=== PATIENT | male | born 1965 | race Caucasian/White ===

== ENCOUNTER → 2016-12-31 | Outpatient (CLI) | payer OTHER ==
--- NOTE | 2016-12-31 09:10 | CT ---
EXAMINATION TYPE: CT sinus wo con DATE OF EXAM: 12/31/2016 COMPARISON: NONE HISTORY: Chronic sinusitis CT DLP: 642.50 mGycm. Automated Exposure Control for Dose Reduction was Utilized. TECHNIQUE: CT scan of the sinuses is performed without contrast, axial images are obtained, coronal r eformatted images are also reviewed. FINDINGS: Visualized intracranial structures are normal. The orbits appear normal. There is minimal mucoperiosteal thickening involving the inferior aspect of the left maxillary sinus. There appears to been previous surgery on the left maxillary sinus to widen the ostium. There is als o been a partial ethmoidectomy on the left. The ostia on the right is patent. IMPRESSION: 1. POSTSURGICAL CHANGE. 2. MINIMAL MUCOPERIOSTEAL THICKENING, LEFT MAXILLARY SINUS..
== END | disposition home or self-care (01) ==
LOC: RADCTMAIN 08:44
PROVIDERS: ATTEND Otolaryngology
DX: J32.0 Chronic maxillary sinusitis (principal); J34.89 Other specified disorders of nose and nasal sinuses
CPT/HCPCS: 70486

== ENCOUNTER → 2017-02-17 | Outpatient (CLI) | payer OTHER ==
[2017-02-17 11:16] LABS: Blood Urea Nitrogen 22 mg/dL (9-20); Non-African American GFR(MDRD) 58 (>60 ml/min/1.73 sqM)
--- NOTE | 2017-02-17 14:15 | MR ---
EXAMINATION TYPE: MR brain wo/w cspine wo DATE OF EXAM: 02/17/2017 COMPARISON: CT cervical spine dated 12/07/2010 HISTORY: Headaches, neck pain TECHNIQUE: Multiplanar, multisequence images of the brain and brainstem is performed without and with IV contras t, utilizing 20 mL intravenous MultiHance . FINDINGS: Brain: Diffusion weighted images demonstrate no evidence of a recent infarct or other diffusion abnor mality. 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 There is no extra-axial fluid collection. Mild periventricular hyperintensity is seen on T2/FLAIR images without abnormal enhancement most significa nt in the occipital lobes near the atria of the lateral ventricles. The ventricular system and cister nal spaces are normal in size and appearance. The brain volume is age appropriate. Midline structures demonstrate normal morphology. The craniocervical junction appears within normal limits. Post contrast images demonstrate no abnormal enhancement. Vertebral arteries are codominant. No evidence of vascular stenosis or occlusion. The dural venous sinuses appear patent. The visualize d sinuses are clear and the globes are intact. Cervical spine: C2-C3: No significant disc disease, neural foraminal narrowing, or spinal canal stenosis. C3-C4: Disc osteophyte complex, uncovertebral hypertrophy, and facet arthropathy creating mild bilate ral neural foraminal narrowing. There is narrowing of the spinal canal without significant stenosis a s there is preservation of the ventral subarachnoid CSF. C4-C5: There is a left eccentric disc osteophyte complex in combination with facet arthropathy creati ng moderate left neural foraminal narrowing and mild right neural foraminal narrowing. This nearly ab uts the ventral thecal sac on the left creating mild spinal canal stenosis. C5-C6: Small left paracentral disc protrusion superimposed on a broad-based disc bulge in addition to uncovertebral hypertrophy and facet arthropathy creates moderate left neural foraminal narrowing and mild spinal canal stenosis. The disc herniation effaces the ventral subarachnoid space and has mass effect upon the cervical cord without abnormal signal of the cervical cord to suggest myelomalacia or cord edema. C6-C7: There is a disc osteophyte complex without focality to suggest herniation effacing the ventral subarachnoid space and creating mild spinal canal stenosis. Additionally uncovertebral hypertrophy a nd facet arthropathy contribute to moderate bilateral neural foraminal narrowing. C7-T1: No significant disc disease, neuroforaminal narrowing or spinal canal stenosis. IMPRESSION: 1. Mild nonspecific periventricular white matter without abnormal enhancement, most commonly on the b asis of chronic microangiopathy. 2. Small left paracentral disc herniation at C5-C6 that in combination with uncovertebral hypertrophy and facet arthropathy creates moderate left neural foraminal narrowing and mild spinal canal stenosi s. 3. Multilevel degenerative disc disease crating mild spinal canal stenosis at C4-C5 and C6-C7.
== END | disposition home or self-care (01) ==
LOC: RADMRIMAIN 07:01
PROVIDERS: ATTEND Psychiatry & Neurology Neurology
DX: M48.02 Spinal stenosis, cervical region (principal); M99.71 Connective tissue and disc stenosis of intervertebral foramina of cervical region; M50.222 Other cervical disc displacement at C5-C6 level; M50.321 Other cervical disc degeneration at C4-C5 level; M12.88 Other specific arthropathies, not elsewhere classified, other specified site; I73.9 Peripheral vascular disease, unspecified; R51 Headache
CPT/HCPCS: 82565; 84520; 70553; 72141; 36415; A9577

== ENCOUNTER → 2018-05-14 | Outpatient (CLI) | payer BC ==
--- NOTE | 2018-05-14 10:11 | ECHOF ---
Referral Reason:I25.10 Atherosclerotic heart disease MEASUREMENTS -------- HEIGHT: 177.8 cm WEIGHT: 95.3 kg BP: RVIDd: 2.8 cm (< 3.3) IVSd: 1.2 cm (0.6 - 1.1) LVIDd: 5.6 cm (3.9 - 5.3) LVPWd: 1.2 cm (0.6 - 1.1) IVSs: 1.5 cm LVIDs: 3.9 cm LVPWs: 1.5 cm LAESV Index (A-L): 36.35 ml/m Ao Diam: 2.8 cm (2.0 - 3.7) AV Cusp: 2.0 cm (1.5 - 2.6) LA Diam: 3.8 cm (2.7 - 3.8) MV EXCURSION: 23.601 mm (> 18.000) MV EF SLOPE: 146 mm/s (70 - 150) EPSS: 0.9 cm MV E Zeeshan: 0.68 m/s MV DecT: 210 ms MV A Zeeshan: 0.64 m/s MV E/A Ratio: 1.07 RAP: 5.00 mmHg RVSP: 37.67 mmHg FINDINGS -------- Bigeminy This was a technically good study. The left ventricular size is normal. There is mild concentric left ventricular hypertrophy. Overa ll left ventricular systolic function is normal with, an EF between 55 - 60 %. The right ventricle is normal in size and function. LA is moderately dilated 34-39 ml/m2 RA appears enlarged. Aortic valve is trileaflet and is mildly thickened. Trace amount of aortic regurgitation. There is no evidence of aortic stenosis. The mitral valve leaflets are mildly thickened. There is trace to mild mitral regurgitation. Mild tricuspid regurgitation present. There is borderline pulmonary hypertension. The right ventr icular systolic pressure, as measured by Doppler, is 37.67mmHg. Trace/mild (physiologic) pulmonic regurgitation. The aortic root size is normal. Normal inferior vena cava with normal inspiratory collapse consistent with estimated right atrial pre ssure of 5 mmHg. There is no pericardial effusion. CONCLUSIONS -------- 1. Bigeminy 2. This was a technically good study. 3. The left ventricular size is normal. 4. There is mild concentric left ventricular hypertrophy. 5. Overall left ventricular systolic function is normal with, an EF between 55 - 60 %. 6. LA is moderately dilated 34-39 ml/m2 7. RA appears enlarged. 8. Aortic valve is trileaflet and is mildly thickened. 9. Trace amount of aortic regurgitation. 10. There is no evidence of aortic stenosis. 11. The mitral valve leaflets are mildly thickened. 12. There is trace to mild mitral regurgitation. 13. Mild tricuspid regurgitation present. 14. There is borderline pulmonary hypertension. 15. The right ventricular systolic pressure, as measured by Doppler, is 37.67mmHg. 16. Trace/mild (physiologic) pulmonic regurgitation. 17. The aortic root size is normal. 18. There is no pericardial effusion. CREDIT REPORTING CLERK: Tk Louise RDCS
--- NOTE | 2018-05-14 14:09 | CT ---
EXAMINATION TYPE: CT heart w calcium score DATE OF EXAM: 05/14/2018 COMPARISON: None HISTORY: Screening for cardiovascular disorder. 213.9 CT DLP: 78.2 mGycm Automated exposure control for dose reduction was used. CT CALCIUM SCORING Coronary calcium is a marker for plaque (fatty deposits) in a blood vessel or atherosclerosis (harden ing of the arteries). The presence and amount of calcium detected in a coronary artery by the CT sca n, indicates the presence and amount of atherosclerotic plaque. These calcium deposits appear years before the development of heart disease symptoms such as chest pain and shortness of breath. A calcium score is computed for each of the coronary arteries based upon the volume and density of th e calcium deposits. This can be referred to as your calcified plaque burden. It does not correspond directly to the percentage of narrowing in the artery but does correlate with the severity of the un derlying coronary atherosclerosis. PROCEDURE TECHNIQUE - Prospective Gating was used. Slice thickness: 3mm. Density threshold (HU): 130, Pixel threshold: 3, Algorithm: discrete. RESULTS: Region: LM Calcium Score (Agatston): 0 Volume (mm3): 0 Mass (g): 0 Region: RCA Calcium Score (Agatston): 0 Volume (mm3): 0 Mass (g): 0 Region: LAD Calcium Score (Agatston): 0 Volume (mm3): 0 Mass (g): 0 Region: CX Calcium Score (Agatston): 0 Volume (mm3): 0 Mass (g): 0 Region: PDA Calcium Score (Agatston): 1 Volume (mm3): 4 Total: Calcium Score (Agatston): 1 Volume (mm3): 4 TOTAL CALCIUM SCORE: 1 Surrounding tissues appear unremarkable. IMPRESSION: Calcium Score: 1 Implication: Minimal identifiable plaque. Risk of Coronary Artery Disease: Very unlikely, less than 10%.
== END | disposition home or self-care (01) ==
LOC: RADCTMAIN 08:47
PROVIDERS: ATTEND Internal Medicine Cardiovascular Disease
DX: I25.10 Atherosclerotic heart disease of native coronary artery without angina pectoris (principal); I25.83 Coronary atherosclerosis due to lipid rich plaque; I08.1 Rheumatic disorders of both mitral and tricuspid valves; I08.0 Rheumatic disorders of both mitral and aortic valves; I27.20 Pulmonary hypertension, unspecified; I50.1 Left ventricular failure, unspecified; R00.8 Other abnormalities of heart beat
CPT/HCPCS: 75571; 93306

== ENCOUNTER 2020-01-15 12:25 | Emergency (ER) | payer BC ==
[2020-01-15 12:33] VITALS: BP 106/77; TEMP 97.3
--- NOTE | 2020-01-15 12:37 | ED ---
General Adult HPI - General Chief complaint: Allergic Reaction Stated complaint: Allergic Reaction Time Seen by Provider: 01/15/20 12:25 Source: patient, EMS, RN notes reviewed, old records reviewed Mode of arrival: EMS Limitations: no limitations - History of Present Illness Initial comments: This is a 54-year-old male presents emergency Department complaining of being stung multiple times by multiple wasps this morning. Patient states after stung immediately took Benadryl began to be nauseated so he went to the bathroom and got lightheaded and eventually passed out. Patient stated that occurred on 2 different occasions back to back. Patient states he had no difficulty breathing or chest pain or palpitations. Patient states he called EMS and they arrived they gave him some steroids. And Benadryl patient states he is feeling much better now is no longer nauseated but is not short of breath he has no chest pain or palpitations and his erythema seems to be improving as does the swelling in his face - Related Data Home Medications Medication Instructions Recorded Confirmed Ascorbic Acid [Vitamin C] 500 mg PO DAILY 10/17/15 10/19/15 Atenolol [Tenormin] 25 mg PO DAILY 10/17/15 10/17/15 Finasteride (Unknown Dose) 1 tab PO DAILY 10/17/15 10/19/15 Forgan-3 Fatty Acids/Fish Oil [Fish 1 each PO DAILY 10/17/15 10/19/15 Oil 1,000 mg Softgel] PARoxetine [Paxil] 10 mg PO AC-LUNCH 10/17/15 10/19/15 Previous Rx's Medication Instructions Recorded EPINEPHrine (Auto Inject) [Epipen] 0.3 mg IM ONCE PRN #2 syringe 01/15/20 predniSONE [Deltasone] 40 mg PO DAILY #8 tab 01/15/20 Allergies Allergy/AdvReac Type Severity Reaction Status Date / Time bee venom protein (honey bee) Allergy Rash/Hives Verified 01/15/20 12:31 Review of Systems ROS Statement: Those systems with pertinent positive or pertinent negative responses have been documented in the HPI. ROS Other: All systems not noted in ROS Statement are negative. Past Medical History Additional Past Medical History / Comment(s): HX OF PVC'S, OCCASIONAL IRRITABLE BOWEL. History of Any Multi-Drug Resistant Organisms: None Reported Past Surgical History: Tonsillectomy Additional Past Surgical History / Comment(s): TESTICLE TORSION (1979), DEVIATED SEPTUM (2002), PAROTID STONES & RECONSTRUCTIVE SURGERY LOWER JAW. Past Anesthesia/Blood Transfusion Reactions: No Reported Reaction Past Psychological History: Anxiety Smoking Status: Former smoker Past Alcohol Use History: Occasional Past Drug Use History: None Reported - Past Family History Father Family Medical History: Cancer Additional Family Medical History / Comment(s): LIVER CANCER General Exam - General Exam Comments Initial Comments: GENERAL: Patient is well-developed and well-nourished. Patient is nontoxic and well- hydrated and is in mild distress. ENT: Neck is soft and supple. No significant lymphadenopathy is noted. Oropharynx is clear. Moist mucous membranes. Neck has full range of motion without eliciting any pain. EYES: The sclera were anicteric and conjunctiva were pink and moist. Extraocular movements were intact and pupils were equal round and reactive to light. Eyelids were unremarkable. PULMONARY: Unlabored respirations. Good breath sounds bilaterally. No audible rales rhonchi or wheezing was noted. CARDIOVASCULAR: There is a regular rate and rhythm without any murmurs gallops or rubs. ABDOMEN: Soft and nontender with normal bowel sounds. No palpable organomegaly was noted. There is no palpable pulsatile mass. SKIN: Patient has erythema on legs abdomen back and arms. Patient also swelling to both years any upper lip. NEUROLOGIC: Patient is alert and oriented x3. Cranial nerves II through XII are grossly intact. Motor and sensory are also intact. Normal speech, volume and content. Symmetrical smile. MUSCULOSKELETAL: Normal extremities with adequate strength and full range of motion. No lower extremity swelling or edema. No calf tenderness. LYMPHATICS: No significant lymphadenopathy is noted PSYCHIATRIC: Normal psychiatric evaluation. Limitations: no limitations Course Vital Signs 01/15/20 01/15/20 01/15/20 12:31 12:40 13:17 Temperature 97.3 F L Pulse Rate 94 93 Respiratory 18 20 20 Rate Blood Pressure 106/77 O2 Sat by Pulse 91 L 98 Oximetry Medical Decision Making - Medical Decision Making EKG shows a normal sinus rhythm at 89 bpm DC interval 126 QRS is 94 QT interval 380 QTC is 472. Patient's EKG shows no ST segment elevation or depression - Lab Data Result diagrams: 01/15/20 12:40 01/15/20 12:40 Lab Results 01/15/20 01/15/20 Range/Units 12:40 12:40 WBC 14.9 H (3.8-10.6) k/uL RBC 5.61 (4.30-5.90) m/uL Hgb 16.9 (13.0-17.5) gm/dL Hct 51.8 (39.0-53.0) % MCV 92.4 (80.0-100.0) fL MCH 30.1 (25.0-35.0) pg MCHC 32.6 (31.0-37.0) g/dL RDW 12.7 (11.5-15.5) % Plt Count 321 (150-450) k/uL Neutrophils % 78 % Lymphocytes % 16 % Monocytes % 3 % Eosinophils % 1 % Basophils % 0 % Neutrophils # 11.7 H (1.3-7.7) k/uL Lymphocytes # 2.4 (1.0-4.8) k/uL Monocytes # 0.5 (0-1.0) k/uL Eosinophils # 0.2 (0-0.7) k/uL Basophils # 0.0 (0-0.2) k/uL Sodium 138 (137-145) mmol/L Potassium 3.9 (3.5-5.1) mmol/L Chloride 108 H (98-107) mmol/L Carbon Dioxide 22 (22-30) mmol/L Anion Gap 8 mmol/L BUN 31 H (9-20) mg/dL Creatinine 1.59 H (0.66-1.25) mg/dL Est GFR (CKD-EPI)AfAm 56 (>60 ml/min/1.73 sqM) Est GFR (CKD-EPI)NonAf 49 (>60 ml/min/1.73 sqM) Glucose 187 H (74-99) mg/dL Calcium 9.2 (8.4-10.2) mg/dL Total Bilirubin 0.7 (0.2-1.3) mg/dL AST 27 (17-59) U/L ALT 47 (4-49) U/L Alkaline Phosphatase 73 (38-126) U/L Total Protein 6.5 (6.3-8.2) g/dL Albumin 4.0 (3.5-5.0) g/dL Disposition Clinical Impression: Anaphylaxis Disposition: HOME SELF-CARE Condition: Good Instructions (If sedation given, give patient instructions): Anaphylaxis (ED) Prescriptions: predniSONE [Deltasone] 40 mg PO DAILY #8 tab EPINEPHrine (Auto Inject) [Epipen] 0.3 mg IM ONCE PRN #2 syringe PRN Reason: Difficulty breathing Is patient prescribed a controlled substance at d/c from ED?: No Referrals: Serge Archer MD [Primary Care Provider] - 1-2 days Time of Disposition: 14:07
[2020-01-15 12:44] LABS: Basophils % (A) 0 %; Eosinophils # (A) 0.2 k/uL (0-0.7); Eosinophils % (A) 1 %; HCT 51.8 % (39.0-53.0); HGB 16.9 gm/dL (13.0-17.5); Lymphocytes # (A) 2.4 k/uL (1.0-4.8); Lymphocytes % (A) 16 %; MCH 30.1 pg (25.0-35.0); MCHC 32.6 g/dL (31.0-37.0); MCV 92.4 fL (80.0-100.0); Monocytes # (A) 0.5 k/uL (0-1.0); Monocytes % (A) 3 %; Neutrophils # (A) 11.7 k/uL (1.3-7.7); Neutrophils % (A) 78 %; Platelet Count 321 k/uL (150-450); RBC 5.61 m/uL (4.30-5.90); RDW 12.7 % (11.5-15.5); WBC 14.9 k/uL (3.8-10.6)
[2020-01-15 12:57] LABS: Calcium 9.2 mg/dL (8.4-10.2); Potassium 3.9 mmol/L (3.5-5.1); Total Bilirubin 0.7 mg/dL (0.2-1.3); Total Protein 6.5 g/dL (6.3-8.2)
[2020-01-15 13:00] VITALS: RESP 20
[2020-01-15] MEDS ORDERED: SODIUM CHLORIDE 0.9% 1,000 ML IV ONE (13:11)
[2020-01-15 13:18] VITALS: PULSE 93
== END 2020-01-15 14:58 | disposition home or self-care (01) ==
LOC: EC 12:25
DX: T63.441A Toxic effect of venom of bees, accidental (unintentional), initial encounter (principal); T78.2XXA Anaphylactic shock, unspecified, initial encounter; F41.9 Anxiety disorder, unspecified; Z79.899 Other long term (current) drug therapy; Z87.891 Personal history of nicotine dependence; Z91.030 Bee allergy status
CPT/HCPCS: 36415; 80053; 85025; 93005; 96360; 99285

== ENCOUNTER → 2023-08-20 | Outpatient (CLI) | payer OTHER ==
--- NOTE | 2023-08-20 15:38 | P.SLEEP ---
History of Present Illness DATE: 08/20/2023 CONSULTATION/NEW PATIENT EVALUATION HISTORY OF PRESENT ILLNESS/SLEEP-WAKE EVALUATION: 58 year old gentleman had been evaluated in the sleep center for possible obstructive sleep apnea hypopnea syndrome. SLEEP SCHEDULE: Usually sleep schedule from 9 PM to 5 AM on weekdays and from 11 PM to 67 AM on weekend. FALLING ASLEEP: Patient was has some problems with the falling asleep, although no TV in bedroom. She described that his has difficulties to relax and to stop thinking. DURING SLEEP: Patient sleeps on the stomach position with snoring and multiple awakenings from sleep usually without nocturia. Positive history of restless leg symptoms, dry mouth, grinding teeth. No history of hypnogogical halluci nations, sleep paralysis, or cataplexy. DURING THE DAY/WAKE STATE: In the morning patient wake up tired, has episodes of anxiety. [place]worth sleepiness scale is 1. Patient doesn't take any naps. PAST MEDICAL HISTORY: Anxiety, PVCs. PAST SURGICAL HISTORY: Surgical treatment for nasal septum deviation. MEDICATIONS: Atenolol 25 mg once a day, paroxetine 10 mg once a day, finasteride 5 mg once a day, magnesium 500 mg at nighttime. SOCIAL HISTORY: Positive for smoking the past for about 15 years quit in 1993, alcohol consumption occasional. FAMILY HISTORY: Heart problems, liver cancer by his father. REVIEW OF SYSTEMS: Snoring, multiple awakenings from sleep. No fevers. No double vision. No recent chest pain. No shortness of breath. No abdominal pain. No bleeding episodes. No blood in urine. No seizure episodes. PHYSICAL EXAMINATION: GENERAL: A pleasant patient without any distress. VITAL SIGNS: BP 164/90, HR 53, RR 16, weight 204.4 pounds, height 5 foot 7-1/4 inches, body mass index 31.7. HEENT: PERRLA, EOMI. Evaluation of oropharynx showed tongue protrudes midline, low position of soft palate Mallampati 3. NECK: Supple. No JVD. Thyroid is not palpable. 18 inches in circumference. LUNGS: Clear to percussion and to auscultation. Good air exchange. No wheezing or rhonchi. HEART: S1, S2 regular. No murmurs, gallops or rubs. ABDOMEN: Soft and nontender. Bowel sounds are present. No organomegaly appreciated. EXTREMITIES: No clubbing or cyanosis. NETWORK SECURITY ENGINEER: Awake, alert, and oriented x3. Cranial nerves 2 to 7 intact. There is no fasciculation or atrophy noted. No focal deficits observed. ASSESSMENT: 1. Snoring, multiple awakenings from sleep, small oropharyngeal airspace Mallampati 3, wide neck 18 inches in circumference. Obstructive sleep apnea hypopnea syndrome. 2. Insomnia psychophysiological and secondary to anxiety. 3. Hypertension in the office today. 4. History of PVCs. 5 restless leg symptoms. 6 . History of sinusitis. 7. Status post surgery for nasal septum deviation. PLAN: 1. Polysomnography for evaluation of patient's breathing during sleep. Patient has significant symptoms of insomnia, home sleep apnea test is not indicated. 2. Following plan after reading sleep study 3. I discussed with patient psychological techniques for treatment of insomnia including status control, paradoxical intentioned, daytime, no watching clock. 4. No driving if patient feels any sleepiness. Patient is aware of civil and criminal liability for unsafe driving. 5. Sleep hygiene with regular sleep time for at least 7.5-8 hours. 6. Watching weight. Thank you very much for referring this patient for consultation. Sincerely, Yonatan López MD, PhD, FAASM. Diplomat of [place] [employer], Sleep Medicine Board by [employer] [employer] [employer] [facility] [place] cc: Navid Griffith PA-C Past Medical History Additional Past Medical History / Comment(s): HX OF PVC'S, OCCASIONAL IRRITABLE BOWEL. History of Any Multi-Drug Resistant Organisms: None Reported Past Surgical History: Tonsillectomy Additional Past Surgical History / Comment(s): TESTICLE TORSION (1979), DEVIATED SEPTUM (2002), PAROTID STONES & RECONSTRUCTIVE SURGERY LOWER JAW. Past Anesthesia/Blood Transfusion Reactions: No Reported Reaction Past Psychological History: Anxiety Past Alcohol Use History: Occasional Past Drug Use History: None Reported - Past Family History Father Family Medical History: Cancer Additional Family Medical History / Comment(s): LIVER CANCER Medications and Allergies Home Medications Medication Instructions Recorded Confirmed Type Ascorbic Acid [Vitamin C] 500 mg PO DAILY 10/17/15 10/19/15 History Finasteride (Unknown Dose) 1 tab PO DAILY 10/17/15 10/19/15 History [place]-3 Fatty Acids/Fish Oil [Fish 1 each PO DAILY 10/17/15 10/19/15 History Oil 1,000 mg Softgel] PARoxetine [Paxil] 10 mg PO AC-LUNCH 10/17/15 10/19/15 History atenoloL [Tenormin] 25 mg PO DAILY 10/17/15 10/17/15 History EPINEPHrine (Auto Inject) [Epipen] 0.3 mg IM ONCE PRN #2 syringe 01/15/20 Rx predniSONE [Deltasone] 40 mg PO DAILY #8 tab 01/15/20 Rx Allergies Allergy/AdvReac Type Severity Reaction Status Date / Time bee venom protein (honey bee) Allergy Rash/Hives Verified 01/15/20 12:31 Sleep Note - Sleep Note Sleep Note: Temperature: Pulse Rate: Respiratory Rate: Blood Pressure: SpO2: Height: Weight: BMI: Neck Circumference:
== END ==
LOC: 3 N SLEEP 14:55
PROVIDERS: ATTEND Internal Medicine
DX: G47.33 Obstructive sleep apnea (adult) (pediatric) (principal); F51.04 Psychophysiologic insomnia; F41.9 Anxiety disorder, unspecified; G25.81 Restless legs syndrome; I10 Essential (primary) hypertension; Z86.79 Personal history of other diseases of the circulatory system; Z98.890 Other specified postprocedural states; Z87.09 Personal history of other diseases of the respiratory system; Z87.891 Personal history of nicotine dependence; Z79.899 Other long term (current) drug therapy; Z91.030 Bee allergy status
CPT/HCPCS: 99202

== ENCOUNTER 2023-09-16 19:37 | Outpatient (CLI) | payer OTHER ==
--- NOTE | 2023-09-18 12:33 | P.PCN ---
Description of Procedure: POLYSOMNOGRAPHY REPORT PROCEDURE(S)/DATE(S): Polysomnography 09/16/2023 CLINICAL: Patient has been seen in the sleep center for evaluation of obstructive sleep apnea-hypopnea syndrome. Please see my consultation. Sleep study has been done for evaluation of patient breathing during the sleep. PROCEDURE: The standard montage for clinical polysomnography included the electroencephalogram, the electrooculogram, the mentalis surface electromyography and Lead II cardiography. The respiratory battery consisted of measurements of nasal/buccal air flow, pressure transducer measurements from nose, thoracic and/or abdominal effort and intercostal surface electromyography. Video monitoring has been done to check for any parasomnia events. Nocturnal oxyhemoglobin saturations were obtained by finger oximetry. Step-chang titration with positive airway pressure was utilized to control the respiratory events, if necessary. RESULTS: During the diagnostic sleep study sleep efficiency was close to the border 85.0%. Latency to sleep onset was normal 17.0 min. Sleep architecture showed stage NI was short 3.2%, Delta sleep was absent 0%, REM sleep was short 15.5%. Respiratory channel showed 57 obstructive apneas, 0 mixed apneas, 0 central apneas, 98 hypopneas with lowest oxygen level 85%. Total apnea hypopnea index was 26.9. Heart rate was in the range between 50 and 57, average 53. EMG showed 4.2 periodic limb movements per hour with 1.0 micro-arousals per hour. IMPRESSIONS: 1. Moderate obstructive sleep apnea hypopnea syndrome. 2. No significant periodic limb movements have been documented. Please see other impressions from consultation PLAN: 1. The patient will have PAP titration for correction of respiratory abnormalities during the sleep. 2. Losing weight program. 3. Sleep hygiene with regular time in bed for at least 7-1/2 hours. 4. No driving if feeling sleepiness. Thank you very much for allowing me to participate in the management of your patient. Sincerely, Yonatan López MD, PhD, FAASM. Diplomat of [place] [employer], Sleep Medicine Board by [place] [employer] Special Delivery [facility] [place]
== END 2023-09-17 05:40 | disposition home or self-care (01) ==
LOC: 3 N SLEEP 19:37
PROVIDERS: ATTEND Internal Medicine
DX: G47.33 Obstructive sleep apnea (adult) (pediatric) (principal); Z91.030 Bee allergy status; Z87.891 Personal history of nicotine dependence
CPT/HCPCS: 95810

== ENCOUNTER 2023-11-18 19:32 | Outpatient (CLI) | payer OTHER ==
--- NOTE | 2023-11-20 13:33 | P.PCN ---
Description of Procedure: CLINICAL: Titration with positive air pressure has been done for correction of respiratory abnormalities during sleep. DESCRIPTION OF PROCEDURE: The standard montage for clinical polysomnography included the electroencephalogram, the electrocardiogram, the mentalis surface electromyography and Lead II cardiography. The respiratory battery consisted of measurements of nasal /buccal air flow, pressure transducer measurements from the nose, thoracic and /or abdominal effort and intercostal surface electromyography. Video monitoring has been done to check for any parasomnia events. Nocturnal oxyhemoglobin saturations were obtained by finger oximetry. Step-chang titration with positive airway pressure was utilized to control respiratory events. Raw data of sleep recording has been reviewed and is adequate. RESULTS: Sleep efficiency was decreased to 72.8%. Latency to sleep onset was prolonged to significantly to 72.0 minutes.]. Sleep architecture showed stage N1 was extremely short 0.8%, Delta sleep was extremely short 0.5%, REM sleep was significantly increased to 32.0%. Heart rate was minimum 55 BPM, maximum 64 BPM, average 58 BPM. EMG showed 27.8 periodic limb movements per hour with 1.0 micriarousals per hour. PAP titration have been done with CPAP up to the pressure 8 cm H2O. The best results were at the pressure 8 cm H2O. Apnea hypopnea index reduced to 1.2. IMPRESSION: 1. Obstructive sleep apnea hypopnea syndrome on controle with PAP treatment. 2. Significant periodic limb movements have been documented. Please see other impressions from consultation. PLAN: 1. The patient will have treatment with positive air pressure equipment with the level of pressure AutoPAP 5-8 cm H2O and should use it every night for the whole night. 2. Watching and losing weight. 3. Sleep hygiene with regular time in bed for at least 8 hours. 4. No driving if feeling any sleepiness. 5. I will see the patient for follow up visit to explain the results of the test, recommendations, check compliance with treatment and make any necessary adjustment related to mask fitting, pressure and humidification. 6. Please check iron profile including ferritin level. Low level of iron may increase risk for periodic limb movements Thank you very much for allowing me to participate in the management of your patient. Sincerely, Yonatan López MD, PhD, FAASM Diplomat of [employer] [employer] Sleep Medicine Board of [place] [employer] Principal System Software Engineer of [facility] [place]
== END 2023-11-19 05:28 | disposition home or self-care (01) ==
LOC: 3 N SLEEP 19:32
PROVIDERS: ATTEND Internal Medicine
DX: G47.33 Obstructive sleep apnea (adult) (pediatric) (principal); G47.61 Periodic limb movement disorder; Z91.030 Bee allergy status; Z87.891 Personal history of nicotine dependence
CPT/HCPCS: 95811

== ENCOUNTER → 2024-02-26 | Outpatient (CLI) | payer OTHER ==
--- NOTE | 2024-03-26 11:04 | SFUN ---
SLEEP CENTER FOLLOW UP NOTE 58-year-old gentleman has been followed in Sleep Center for treatment of obstructive sleep apnea-hypopnea syndrome. Recent sleep study showed obstructive sleep apnea- hypopnea syndrome, the patient was started on treatment with CPAP and today is his first visit after CPAP therapy has been started. The patient feels better with CPAP, sleeps better and feels better during the day. [place] Sleepiness Scale is 2. I checked CPAP unit. Range of the pressure 5-8, average pressure 7.9, leak is 7 L/minute which is normal range. Apnea-hypopnea index is 4.4, which is normal. Usage is 78/86 nights and 65/86 nights for more than 4 hours, which demonstrated good compliance with treatment. PHYSICAL EXAMINATION: GENERAL: Patient in no distress. VITAL SIGNS: BP 177/99 , HR 57, RR 16, weight 206.4 pounds, temperature 98.2, oxygen saturation at room air 97%. HEENT: PERRLA, EOMI, evaluation of oropharynx showed tongue protrudes midline. NECK: Supple, no JVD. Thyroid is not palpable. LUNGS: Clear to percussion and to auscultation. Good air exchange. No wheezing or rhonchi. HEART: S1, S2 regular. No murmurs, gallops, or rubs. ABDOMEN: Soft and nontender. Bowel sounds are present. No organomegaly appreciated. EXTREMITIES: No clubbing or cyanosis. No edema. INSTRUCTIONAL SPECIALIST: Awake, alert, and oriented X3. Cranial nerves 2 to 7 intact. There is no fasciculation or atrophy. noted. No focal deficits observed. IMPRESSION: 1. Obstructive sleep apnea-hypopnea syndrome. The patient demonstrated good compliance with treatment, benefitting from treatment. 2. Obesity. 3. Hypertension. 4. History of insomnia 5. Sinuses problems. 6. Status post surgical treatment for nasal septum deviation. 7. Periodic limb movements on polysomnogram. PLAN: 1. The patient will continue to use CPAP equipment every night for the whole night. 2. Watching and losing weight. 3. Sleep hygiene with regular time in bed for at least 7.5 to 8 hours. 4. The patient should change air filters every 2 weeks. 5. I discussed with the patient recommendations about position of CPAP unit, humidity regulations. 6. Follow-up visit in 6 months or earlier if patient has any problems. 7. Low sodium diet. 8. Monitoring blood pressure. Thank you very much for allowing me to participate in management of your patient. Sincerely, Yonatan López MD, PhD, FAASM Diplomat of [place] [employer] Sleep Medicine Board of [place] [employer] Home Paraprofessional of [facility] [place] LIZZIE / BIANCA: [id number] / MTDD
== END ==
LOC: 3 N SLEEP 16:15
PROVIDERS: ATTEND Internal Medicine
CPT/HCPCS: 99212

== ENCOUNTER → 2024-10-20 | Outpatient (CLI) | payer OTHER ==
[2024-10-20 15:57] VITALS: BP 165/92; PULSE 60; RESP 16; TEMP 98.2
--- NOTE | 2024-10-20 16:23 | P.PROGSL ---
Subjective DATE: 10/20/2024 FOLLOW UP VISIT. Patient with obstructive sleep apnea hypopnea syndrome return to sleep center for follow-up visit. Information from previous visit have been reviewed. Patient is using PAP equipment every night for the whole night, getting PAP supplies in time. Patient feels dryness in the nose and mouth while using CPAP. He increased humidity significantly up, but then developed water in the tube and water in the mask. [place] sleepiness scale is 1, which is normal. I checked information from PAP unit. PAP unit pressure 5-10, average 9.7 cm H2O. Usage is 90% for more then 4 hours, average 4 hours per night. Leak is borderline 27.0 l/m. Apnea Hypopnea Index is 1.3, which is normal. MEDICATIONS have been reviewed, please see below. During physical exam: GENERAL: A pleasant patient without any distress. VITAL SIGNS: Please see below, weight is 217.6 lbs. HEENT: PERRLA, EOMI.low position of soft palate, [place] 3. NECK: Supple. No JVD. LUNGS: Clear to percussion and to auscultation. Good air exchange. No wheezing or rhonchi. HEART: S1, S2 regular. ABDOMEN: Soft and nontender.[] EXTREMITIES: No clubbing or cyanosis. MAGAZINE WORKER: Awake, alert, and oriented x3. No focal deficit. Impressions: 1. Obstructive sleep apnea-hypopnea syndrome. Patient demonstrated great compliance with treatment, benefiting from treatment. 2. Obesity, BMI 32.5, patient increased weight on around 10 pounds comparing with previous visit. 3. History of insomnia. 4. History of sinus problems. 5. Status post surgical treatment for nasal septum deviation. 6. Some periodic limb movements on polysomnogram, no complaints. I explained to the patient how to adjust temperature in the tube. Tube temperature was increased to 80 degree last correction of position of CPAP unit during the sleep, presently tube goes down to the face. Plan: 1. Continue using PAP equipment every night for the whole night. 2. Sleep hygiene with regular time in bed for at least 7.5-8 hours 3. PAP unit should stay lower then position of the head. 4. Advised patient to remove all remaining water from humidifier canister daily and make it dry after each usage. Refill canister with fresh distilled water before each usage. 5. Watching losing weight. 6. Precautions related to driving. No driving if feel any sleepiness. 7. I will maintain prescription for PAP supplies including mask, tube, filters. 8. Follow up visit in 8 months or earlier if patient has any problems. Thank you very much for allowing me to participate in the management of your patient. Yonatan López MD, PhD, FAASM. Diplomat of [place] [employer], Sleep Medicine Board by [place] [employer] Senior Corporate Recruiter of [facility] [place] Objective - Vital Signs Vital Signs: Vital Signs Temp 98.2 F 10/20/24 15:54 Pulse 60 10/20/24 15:54 Resp 16 10/20/24 15:54 BP 165/92 10/20/24 15:54 Pulse Ox 96 10/20/24 15:54 FiO2 Intake & Output 10/19/24 10/20/24 10/20/24 18:59 06:59 18:59 Weight 95.878 kg Home Medications: Home Medications Medication Instructions Recorded Confirmed Type Ascorbic Acid [Vitamin C] 500 mg PO DAILY 10/17/15 10/19/15 History Finasteride (Unknown Dose) 1 tab PO DAILY 10/17/15 10/20/24 History [place]-3 Fatty Acids/Fish Oil [Fish 1 each PO DAILY 10/17/15 10/19/15 History Oil 1,000 mg Softgel] PARoxetine [Paxil] 10 mg PO AC-LUNCH 10/17/15 10/20/24 History atenoloL [Tenormin] 25 mg PO DAILY 10/17/15 10/20/24 History EPINEPHrine (Auto Inject) [Epipen] 0.3 mg IM ONCE PRN #2 syringe 01/15/20 Rx predniSONE [Deltasone] 40 mg PO DAILY #8 tab 01/15/20 Rx
== END ==
LOC: 3 N SLEEP 15:31
PROVIDERS: ATTEND Internal Medicine
DX: G47.33 Obstructive sleep apnea (adult) (pediatric) (principal); E66.9 Obesity, unspecified; Z68.32 Body mass index [BMI] 32.0-32.9, adult; Z87.898 Personal history of other specified conditions; Z87.09 Personal history of other diseases of the respiratory system; Z98.890 Other specified postprocedural states; Z91.030 Bee allergy status; Z87.891 Personal history of nicotine dependence
CPT/HCPCS: 99212